=== PATIENT | female | born 1975 | race Caucasian/White ===

== ENCOUNTER 2016-07-04 19:30 | Emergency (ER) | payer BC, OTHER ==
[~2016-07-04] VITALS: Ht 167.6 cm; Wt 78.0 kg
[2016-07-04 19:32] VITALS: BP 133/86; PULSE 88; RESP 15; TEMP 98.9; O2SAT 97
--- NOTE | 2016-07-04 22:17 | PD ---
HPI Chief Complaint: Skin Problem Time Seen by Provider: 22:12 Travel History International Travel<30 days: No Contact w/Intl Traveler<30days: No Traveled to known affect area: No History of Present Illness HPI This is a 41-year-old female who presents for evaluation of a skin "boil." Symptoms started 1 week ago in her left labial region. She describes it as a throbbing pain which is constant, worse when sitting. The area has gradually enlarged and become more painful which prompted evaluation. She tried using home remedies including vinegar, hydrocortisone cream which did not help. She denies any drainage, vaginal discharge. No fevers or chills. She has no other complaints. PFSH Past Medical History Asthma: Yes Cancer: No Cardiovascular Problems: No Diabetes: No Diminished Hearing: No Endocrine: No Genitourinary: Yes (ENDOMETRIOSIS, ) Hepatitis: No Hiatal Hernia: No Immune Disorder: No Musculoskeletal: Yes (L-5 HERNIATED DISC) Neurologic: Yes (OCCAS. HEADACHES) Psychiatric: No Respiratory: Yes (ASTHMA CHILD) Thyroid Disease: No : 0 Dilation and Curettage (D&C): Yes Past Surgical History AICD: No Gynecologic Surgery: Yes (P.I.D. SURGERY, D&C AND LAPOROSCOPY IN SEPTEMBER 2006) Joint Replacement: No Pacemaker: No Other Surgery: Yes (LAPAROTOMY FOR ENDOMETRIOSIS) Social History Alcohol Use: No Tobacco Use: Yes (03/12 PPD) Substance Use: No Allergies-Medications (Allergen,Severity, Reaction): Coded Allergies: No Known Allergies (Verified , 07/04/16) Reported Meds & Prescriptions Reported Meds & Active Scripts Active Keflex (Cephalexin) 500 Mg Cap 500 Mg PO Q8H Bactrim DS (Sulfamethoxazole-Trimethoprim) 800-160 Mg Tab 1 Tab PO BID Review of Systems General / Constitutional: No: Fever, Chills Genitourinary: No: Pelvic Pain Skin: Positive Other (positive for painful lump in the genital region.) Physical Exam Narrative Examined in the presence of a female nurse GENERAL: Well developed well-nourished female in no acute distress SKIN: Warm and dry. HEAD: Atraumatic. Normocephalic. EYES: Pupils equal and round. No scleral icterus. No injection or drainage. ENT: No nasal bleeding or discharge. Mucous membranes pink and moist. NECK: Trachea midline. No JVD. CARDIOVASCULAR: Regular rate and rhythm. No murmur appreciated. RESPIRATORY: No accessory muscle use. Clear to auscultation. Breath sounds equal bilaterally. GASTROINTESTINAL: Abdomen soft, non-tender, nondistended. Hepatic and splenic margins not palpable. : In the left lower labial fold at the 5 o'clock position there is an area of induration, tenderness to palpation. Not particularly pointing or fluctuant. No drainage. Data Data Last Documented VS Vital Signs Date Time Temp Pulse Resp B/P Pulse Ox O2 Delivery O2 Flow Rate FiO2 07/04/16 19:32 98.9 88 15 133/86 97 Room Air Orders Lidocai-Epi 1%-1:100,000 Inj (Xylocaine- (07/04/16 22:45) Wound Culture And Gram Stain (07/04/16 22:36) Sulfamet-Trimeth Ds 800-160 Mg (Bactrim (07/04/16 23:00) Cephalexin (Keflex) (07/04/16 23:00) [facility] Medical Decision Making Medical Screen Exam Complete: Yes Emergency Medical Condition: Yes Medical Record Reviewed: Yes Differential Diagnosis Labial abscess, cellulitis, Bartholin's gland cyst Narrative Course 41-year-old female with pain and soft tissue swelling the left lower labial fold for one week. Examination reveals an area of induration at the 5 o'clock position of the left lower labial fold consistent with a Bartholin's gland infectious process. After verbal consent was obtained, incision and drainage was performed. Minimal purulent discharge was expressed so a work catheter was not placed. Local wound care provided. Wound culture performed. The patient is being discharged with Bactrim and Keflex. She is declining any sort of opiate derived pain medication. Procedures Procedure Narrative INCISION AND DRAINAGE OF BARTHOLIN'S GLAND ABSCESS: The area was prepped and was sterilely draped. A subcutaneous wheal of 1% Xylocaine with epinephrine with a total number 8 mL was used to anesthetize the area. The area was properly anesthetized. A number 11 scalpel was used to make a 1-cm incision across the area of the abscess. Cultures were obtained. The abscess was drained an irrigated with normal saline. Diagnosis Primary Impression: Bartholin's gland infection Additional Instructions: Warm bath 20 minutes at a time 2-3 times a day. Keep the area covered. Take antibiotics as prescribed. Ibuprofen for pain. Return for evidence of worsening infection such as increasing swelling, increasing pain, fevers. Med/Other Pt SpecificInfo: Prescription(s) given, Wound Care Scripts Cephalexin (Keflex)500 Mg [id number] Mg PO Q8H #30 CAP Ref 0 Prov:Rakesh Lora MD 07/04/16 Sulfamethoxazole-Trimethoprim (Bactrim DS)800-160 Mg Tab1 Tab PO BID #20 TAB Ref 0 Prov:Rakesh Lora MD 07/04/16 Disposition: 01 DISCHARGE HOME Condition: Stable Enrrique Thorpe Jul 04, 2016 22:17
[2016-07-04] MEDS ORDERED: CEPH-460 PO (22:44)
[2016-07-04] MEDS ORDERED: BACT800T5 PO (22:44)
[2016-07-04] MEDS ORDERED: LIDOCAINE 1%/EPINEPHrine 1:100,000 SOLN 20 ML VIAL INFIL ONE (22:45)
[2016-07-04] MEDS ORDERED: CEPHALEXIN MONOHYDRATE 500 MG CAP PO ONE (23:00)
[2016-07-04] MEDS ORDERED: SULFAMETHOXAZOLE-TRIMETHOPRIM DS 800-160 MG TAB PO ONE (23:00)
== END 2016-07-05 00:16 | disposition home or self-care (01) ==
LOC: NEPK 19:30
DX: N75.8 Other diseases of Bartholin's gland (principal)
CPT/HCPCS: 56420; 86403; 87070; 87205